=== PATIENT | male | born 1980 | race Caucasian/White ===

== ENCOUNTER 2019-06-28 10:20 | Emergency (ER) | payer BC, SELFPAY ==
[2019-06-28 10:28] VITALS: BP 135/89; PULSE 86; RESP 20; TEMP 36.8; O2SAT 99
--- NOTE | 2019-06-28 11:30 | ED.EYEPROB ---
HPI - Eye Problem General Chief complaint: Eye Problems Stated complaint: L eye injury Time Seen by Provider: 06/28/19 10:42 Source: patient Mode of arrival: ambulatory Limitations: no limitations History of Present Illness HPI Narrative: Patient presents with chief complaint of foreign body sensation in his left eye that began last night approximately 6 PM when he was grinding metal and felt some going to his eye. Patient states that he has been rinsing his eye with saline but he still feels discomfort to the center area of the lateral aspect of the eye. Patient reports tearing and light sensitivity. Patient reports some blurry vision but states that is due to the tearing. Patient denies wearing contact lenses. Patient denies any prior trauma to his eye. Related Data Allergies Allergy/AdvReac Type Severity Reaction Status Date / Time erythromycin base Allergy Unknown Anaphylactic Verified 06/28/19 11:01 Shock Review of Systems Review of Systems: Narrative: CONSTITUTIONAL: Denies fever, chills, or sweats. EYES: Reports foreign body sensation, visual changes, redness, and tearing ENT: Denies rhinorrhea, congestion, sore throat, or otalgia. CARDIOVASCULAR: Denies chest pain, palpitations, or edema. RESPIRATORY: Denies cough or dyspnea. GASTROINTESTINAL: Denies abdominal pain, nausea, vomiting, or diarrhea. GENITOURINARY: Denies dysuria or hematuria. SKIN: Denies rash or itching. MUSCULOSKELETAL: Denies back pain, joint pain, or myalgia. NEUROLOGIC: Denies headache, numbness, dizziness, or weakness. PSYCHIATRIC: Denies anxiety or depression. Exam Narrative: Exam Narrative: GENERAL: Well-appearing, well-nourished, and in no acute distress. HEAD: Normocephalic, atraumatic. EYES: PERRLA and EOMI. left eye: abrasions to the left side of sclera, metal noted right under the pupil in the area of iris at approximately 6 o'clock position. Rust ring noted. ENT: Nares clear, no rhinorrhea or epistaxis. Mucous membranes moist. Oropharynx without tonsillar hypertrophy exudate or other lesions. Bilateral TMs pearly rob nonbulging NECK: Supple. No adenopathy or masses. No carotid bruits or JVD CHEST: Clear to auscultation. No respiratory distress. No wheezes rales or rhonchi HEART: Regular rate and rhythm. No murmur heard. Normal peripheral pulses. ABDOMEN: Soft, nontender, nondistended, normal active bowel sounds. EXTREMITIES: Normal range of motion. No edema. SKIN: Warm, dry, no rash. NEURO: No focal deficits. Alert and oriented x3. PSYCH: Normal mood and affect. Course Vital Signs Vital signs: Vital Signs Temperature 98.2 F 06/28/19 10:28 Pulse Rate 86 06/28/19 10:28 Respiratory Rate 20 06/28/19 10:28 Blood Pressure 135/89 06/28/19 10:28 Pulse Oximetry 99 06/28/19 10:28 Temperature 98.2 F 06/28/19 10:28 Pulse Rate 86 06/28/19 10:28 Respiratory Rate 20 06/28/19 10:28 Blood Pressure 135/89 06/28/19 10:28 Pulse Oximetry 99 06/28/19 10:28 Procedures FB Removal Eye Foreign Body #1: Location: eye (L) Topical anesthetic used: tetracaine Foreign body: metal Technique: irrigation, cotton tip swab and needle Procedure performed under: direct visualization with magnification Complications: incomplete foreign body removal Foreign Body Removal Narrative: unable to remove metal and I will not perform more than very superficial removal so [facility] has been contacted as patient will be sent there for further intervention by Opthalmologist. Patient is stable and as no worsened symptoms. MDM - Eye Problem MDM Narrative Medical decision making narrative: Patient will be sent to [facility] for extraction of foreign body and further management as metal is not dislodging with very gentle, superficial manipulation. Patient continues to aggressively rub his eye despite being instructed not to do so. I have also walked into the room and seen the patient rubb
== END 2019-06-28 12:08 | disposition home or self-care (01) ==
PROVIDERS: Emergency Provider Emergency Medicine; PCP Physician Assistant
DX: S05.02XA Injury of conjunctiva and corneal abrasion without foreign body, left eye, initial encounter (principal); T15.92XA Foreign body on external eye, part unspecified, left eye, initial encounter; W22.8XXA Striking against or struck by other objects, initial encounter
CPT/HCPCS: 65205; 65220; 99282; A9270

== ENCOUNTER 2021-06-07 13:51 | Emergency (ER) | payer BC, SELFPAY ==
[2021-06-07 13:56] VITALS: BP 136/99; PULSE 115; RESP 18; TEMP 36.7; O2SAT 98
--- NOTE | 2021-06-07 14:24 | ED.SKABFB ---
HPI - Skin/Abscess/Foreign Bdy General Chief complaint: Allergic Reaction Stated complaint: allergic reaction Time Seen by Provider: 06/07/21 14:09 Source: patient and RN notes reviewed Mode of arrival: ambulatory Limitations: no limitations History of Present Illness HPI narrative: Patient presents today complaining of rash. He started with itching yesterday and swelling of his lips and tongue. At that time he took some Benadryl, which help with those symptoms. Today he started with a rash to his legs, trunk, and developed swelling to his hands. He does not have any swelling to his lips or tongue today. Denies shortness of breath or difficulty swallowing. He has been taking Benadryl for his symptoms. Last dose was 4 hours prior to arrival. MD complaint: rash Related Data Home Medications Medication Instructions Recorded Confirmed gabapentin 100 mg PO DAILY 06/07/21 06/07/21 rosuvastatin 5 mg PO DAILY 06/07/21 06/07/21 Allergies Allergy/AdvReac Type Severity Reaction Status Date / Time erythromycin base Allergy Unknown Anaphylactic Verified 06/07/21 14:13 Shock Review of Systems Review of Systems: CONSTITUTIONAL: Denies body aches, fever, chills, or sweats. EYES: Denies visual changes, redness, or discharge. ENT: Denies rhinorrhea, congestion, sore throat, or otalgia. CARDIOVASCULAR: Denies chest pain, palpitations, or edema. RESPIRATORY: Denies cough or dyspnea. GASTROINTESTINAL: Denies abdominal pain, nausea, vomiting, or diarrhea. GENITOURINARY: Denies dysuria or hematuria. SKIN: Denies wounds.+ Pruritic rash MUSCULOSKELETAL: Denies back pain, joint pain, or myalgia. NEUROLOGIC: Denies headache, numbness, tingling, or weakness. PSYCH: Denies depression or anxiety. PMFSH Comments At time of signature, I have reviewed and agree with nursing past medical, surgical, social and family history unless otherwise noted. Please see nursing chart for further information. There is no relevant family history pertinent to the presenting complaint Exam Narrative: GENERAL: Well-appearing, well-nourished, and in no acute distress. HEAD: Normocephalic, atraumatic. EYES: EOMI. No redness or drainage. Conjunctivae normal. ENT: Mucous membranes pink and moist. Nares clear. No rhinorrhea. Throat normal. Uvula midline. NECK: Normal AROM. Supple. No lymphadenopathy. CHEST: No respiratory distress. Clear to auscultation. HEART: Regular rate and rhythm. No murmur appreciated. Normal peripheral pulses. EXTREMITIES: Normal range of motion. Mild swelling to the bilateral hands.. SKIN: Warm, dry. Capillary refill normal. Normal skin turgor. Urticarial rash to the neck, upper back, chest, bilateral upper arms, bilateral upper legs, bilateral hands and wrists. Patient has multiple scabbed superficial linear abrasions, which he states are due to a new cat. None appear acutely infected. NEURO: No focal deficits. Alert and oriented x3. Gait steady. PSYCH: Normal affect. No signs of depression or anxiety. Course Course Level of Care: Express Care Visit Vital Signs Vital signs: Vital Signs Temperature 98.1 F 06/07/21 13:56 Pulse Rate 115 H 06/07/21 13:56 Respiratory Rate 18 06/07/21 13:56 Blood Pressure 136/99 H 06/07/21 13:56 Pulse Oximetry 98 06/07/21 13:56 Temperature 98.1 F 06/07/21 13:56 Pulse Rate 115 H 06/07/21 13:56 Respiratory Rate 18 06/07/21 13:56 Blood Pressure 136/99 H 06/07/21 13:56 Pulse Oximetry 98 06/07/21 13:56 Reviewed. Pt has been instructed to follow up with his PCP regarding his elevated blood pressure today. MDM - Skin/Abscess/Foreign Bdy Differential Diagnosis Differential diagnosis: Likely urticaria, cellulitis, eczema, impetigo and contact dermatitis Critical Care Time Critical Care Time Critical Care Time: No Discharge Plan Discharge Clinical Impression: Urticaria Patient Disposition: Home, Self-Care Condition: Stable Instructions: Urtic
== END 2021-06-07 14:30 | disposition home or self-care (01) ==
PROVIDERS: Emergency Provider Nurse Practitioner; PCP Physician Assistant
DX: L50.9 Urticaria, unspecified (principal); E78.00 Pure hypercholesterolemia, unspecified; M48.00 Spinal stenosis, site unspecified
CPT/HCPCS: 99213; G0463

== ENCOUNTER 2021-07-06 09:36 | Emergency (ER) | payer BC, SELFPAY ==
--- NOTE | 2021-07-06 09:38 | ED.URI ---
HPI - URI/Sore Throat General Chief Complaint: Upper Respiratory Infection Stated Complaint: sore throat Time Seen by Provider: 07/06/21 09:38 Source: patient, family, RN notes reviewed and old records reviewed Mode of arrival: ambulatory Limitations: no limitations History of Present Illness HPI Narrative: 40-year-old male presents to the [facility] with complaints of a sore throat, trouble swallowing, fever yesterday. States it started 2 to 3 days ago. Has been taking Tylenol and Motrin with some relief. Has taken Covid home test which he states is negative. MD elicited complaint: sore throat Onset (ago): day(s) (3) Consistency: constant Related Data Home Medications Medication Instructions Recorded Confirmed gabapentin 100 mg PO DAILY 06/07/21 06/07/21 rosuvastatin 5 mg PO DAILY 06/07/21 06/07/21 Allergies Allergy/AdvReac Type Severity Reaction Status Date / Time erythromycin base Allergy Unknown Anaphylactic Verified 07/06/21 09:38 Shock Review of Systems Review of Systems: All systems reviewed & are unremarkable except as noted in HPI and below Constitutional: Constitutional: Reports as per HPI, Denies chills, Reports fever(s) and Denies headache(s) Eyes: Eyes: Reports no additional eye complaints ENT: Reports as per HPI, Denies vertigo, Denies dizziness, Denies headache(s), Denies nasal congestion and Reports sore throat Comments: trouble swallowing Cardiovascular: Cardiovascular: Reports no additional cardiovascular complaints, Denies chest pain, Denies syncope, Denies rapid heart rate and Denies dyspnea Respiratory: Respiratory: Reports no additional respiratory complaints, Denies cough, Denies dyspnea and Denies wheezing Gastrointestinal: Gastrointestinal: Reports no additional gastrointestinal complaints, Denies abdominal pain, Denies diarrhea, Denies nausea and Denies vomiting Musculoskeletal: Musculoskeletal: Reports as per HPI, Reports myalgias and Denies numbness Integumentary/Breasts: Skin/Breast: Reports system reviewed and no additional complaints, except as docu Neurologic: Reports system reviewed and no additional complaints, except as documented, Denies vertigo, Denies dizziness, Denies syncope, Denies headache(s), Denies focal weakness and Denies numbness Psychiatric: Psychiatric: Reports no additional psychiatric complaints Allergic/Immunologic: Allergic/Immunologic: Reports no additional allergic/immunologic complaints and Denies wheezing PMFSH Past Medical History Medical History (Updated 07/06/21 @ 09:52 by Katelyn Jalloh) High cholesterol Surgical History Surgical History (Updated 07/06/21 @ 09:46 by Katelyn Jalloh) H/O right wrist surgery History of tonsillectomy Social History Social History (Updated 07/06/21 @ 09:47 by Katelyn Jalloh) Smoking status: Current every day smoker Tobacco type: cigarettes Living arrangements: with family Gender identity (if verbalized by the patient): Male Comments At the time of my signature, I reviewed and agree with the nursing past medical, surgical, social, and family history. There is no relevant family history pertinent to the patient complaint. Exam Const: General: cooperative, healthy appearing, no acute distress, well developed and alert Nutritional Appearance: well nourished Orientation/consciousness: patient oriented x3 Limitations: no limitations HENMT: Head: normal to inspection Ears: external ears normal, TM's normal bilaterally and EAC's normal General nose exam: Normal external nose present and Normal nasal mucous membranes and turbinates present Face and sinus: normal facial exam Mouth: Yes Normal oral and palatal mucosa present and Yes lip normal Throat: uvula midline, posterior oropharynx abnormal erythema (Posterior pharynx, uvula) and exudates (On uvula), tonsils absent and uvular edema Eyes: Conjunctivae: conjunctivae normal Pupils: Equal, round and reactive pupils present Neck: Neck: normal vis
[2021-07-06 09:47] VITALS: BP 138/103; PULSE 102; RESP 16; TEMP 35.9; O2SAT 99
== END 2021-07-06 09:55 | disposition home or self-care (01) ==
PROVIDERS: Emergency Provider Nurse Practitioner; PCP Physician Assistant
DX: J02.0 Streptococcal pharyngitis (principal); K12.2 Cellulitis and abscess of mouth; E78.00 Pure hypercholesterolemia, unspecified; F17.210 Nicotine dependence, cigarettes, uncomplicated
CPT/HCPCS: 87880; 99213; G0463

== ENCOUNTER 2021-07-18 17:33 | Emergency (ER) | payer BC, SELFPAY ==
[2021-07-18 17:46] VITALS: BP 120/88; PULSE 106; RESP 16; TEMP 37.2; O2SAT 99
--- NOTE | 2021-07-18 18:00 | ED.SKABFB ---
HPI - Skin/Abscess/Foreign Bdy General Chief complaint: Wound/Laceration Stated complaint: left hand swelling/redness Time Seen by Provider: 07/18/21 18:00 Source: patient Mode of arrival: ambulatory Limitations: no limitations History of Present Illness HPI narrative: Pete Fine is a 40 yo male with high cholesterol and chronic pain who cut his hand yesterday while at work and has not protected area since he cut it with a preparing box tender 2 days ago. He needs it tetanus shot and because of the redness at the base of the third and fourth finger on the palmar side may need antibiotics. Related Data Home Medications Medication Instructions Recorded Confirmed gabapentin 100 mg PO DAILY 06/07/21 07/06/21 rosuvastatin 5 mg PO DAILY 06/07/21 07/06/21 Allergies Allergy/AdvReac Type Severity Reaction Status Date / Time erythromycin base Allergy Unknown Anaphylactic Verified 07/06/21 09:38 Shock Review of Systems Review of Systems: CONSTITUTIONAL: Denies fever, chills, sweats. EYES: Denies visual changes, redness, discharge. ENT: Denies rhinorrhea, congestion, sore throat, otalgia. CARDIOVASCULAR: Denies chest pain, palpitations, edema. RESPIRATORY: Denies dyspnea, wheezing, cough GASTROINTESTINAL: Denies abdominal pain, nausea, vomiting, diarrhea. GENITOURINARY: Denies dysuria, hematuria, abnormal discharge SKIN: Denies rash or itching. Laceration to the left base of third finger with redness on the palmar side that is extending to the fourth finger NEUROLOGIC: Denies numbness, or focal weakness. PSYCHIATRIC: Denies anxiety or depression. [facility] Past Medical History Medical History Chronic back pain High cholesterol Surgical History Surgical History H/O right wrist surgery History of tonsillectomy Social History Social History (Updated 07/18/21 @ 18:03 by Negrita Gar CNP) Smoking status: Current every day smoker Tobacco type: cigarettes Alcohol intake: current Gender identity (if verbalized by the patient): Male Comments At time of signature, I agree with nursing past medical, surgical, social and family history. There is no relevant family history pertinent to the presenting complaint. Exam Narrative: GENERAL: This is a well-nourished, well-developed patient, in mild distress. HEAD: normocephalic, atraumatic. EYES: . Sclera clear/white. Vision is grossly intact. EARS: External ears normal, Hearing grossly intact. NOSE: External nose normal without nasal discharge, nares without redness, no rhinorrhea. THROAT: Mucous membranes moist, NECK: Neck supple, non-tender CARDIOVASCULAR: Regular rate and rhythm without murmurs, gallops, or rubs. RESPIRATORY: Clear to auscultation. Breath sounds equal bilaterally. No wheezes, rales, or rhonchi. GASTROINTESTINAL: Abdomen soft, non-tender, SKIN: warm, intact with poor movement of fingers 3, 4 and 5 due to pain, erythema around small 1 cm cut with mild swelling and some redness in the distal palm and base of 3rd finger; patient states is very tender but denies any possibility of foreign object in the cut NEURO: awake, alert, and oriented to person, place and time. There were no obvious focal neurologic abnormalities. Steady gait EXTREMITIES: Normal range of motion. BACK: Nontender without deformity Course Course Emergency Course: Patient cut hand at work yesterday and cleaned it at the time but did not protect the area which is now red and painful at the base of the third finger extending of the fourth finger palmar side Area cleaned, tetanus vaccine given, started on Keflex, tramadol and ibuprofen Level of Care: Express Care Visit Vital Signs Vital signs: Vital Signs Temperature 98.9 F 07/18/21 17:46 Pulse Rate 106 H 07/18/21 17:46 Respiratory Rate 16 07/18/21 17:46 Blood Pressure 120/88 07/18/21 17:46 Pulse Oximetry
[2021-07-18] MEDS: TETANUS,DIPHTHERIA,AC PERTUSSIS ADULT (0.5 ML) BOOSTRIX IM (18:10)
== END 2021-07-18 18:31 | disposition home or self-care (01) ==
PROVIDERS: Emergency Provider Nurse Practitioner
DX: L03.012 Cellulitis of left finger (principal); Z23 Encounter for immunization; F17.210 Nicotine dependence, cigarettes, uncomplicated; E78.00 Pure hypercholesterolemia, unspecified
CPT/HCPCS: 90471; 90715; 99213; G0463

== ENCOUNTER 2021-07-21 09:39 | Emergency (ER) | payer BC, SELFPAY ==
--- NOTE | 2021-07-21 09:48 | ED.UPPEXIN ---
HPI - Extremity Injury (Upper) General Chief Complaint: Extremity Injury, Upper Stated Complaint: Left hand Pain Time Seen by Provider: 07/21/21 09:48 Source: patient, RN notes reviewed and old records reviewed Mode of arrival: ambulatory Limitations: no limitations History of Present Illness HPI narrative: 40 year male presented to the [facility] with complaint of hand pain and swelling to the 3rd finger with streaking redness on top of hand. 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 He received a prescription for Keflex and [place]. Patient received a tetanus immunization on 07/18/21 per patient record. Patient reported that he has been compliant with his antibiotics but the swelling and pain is worsening. Patient reports pain 02/25. MD complaint: injury to: left and hand Severity: moderate Severity scale (1-10): >10 Relieving factors: none Related Data Home Medications Medication Instructions Recorded Confirmed gabapentin 100 mg PO DAILY 06/07/21 07/21/21 rosuvastatin 5 mg PO DAILY 06/07/21 07/21/21 Allergies Allergy/AdvReac Type Severity Reaction Status Date / Time erythromycin base Allergy Unknown Anaphylactic Verified 07/21/21 10:00 Shock Review of Systems Review of Systems: All systems reviewed & are unremarkable except as noted in HPI and below Constitutional: Constitutional: Reports no additional constitutional complaints, Denies chills and Denies fever(s) Eyes: Eyes: Reports no additional eye complaints ENT: Reports system reviewed and no additional complaints, except as documented Cardiovascular: Cardiovascular: Reports no additional cardiovascular complaints Respiratory: Respiratory: Reports no additional respiratory complaints Gastrointestinal: Gastrointestinal: Reports no additional gastrointestinal complaints Musculoskeletal: Musculoskeletal: Reports as per HPI, Reports arthralgias and Reports joint swelling Integumentary/Breasts: Skin/Breast: Reports as per HPI and Reports erythema Neurologic: Reports system reviewed and no additional complaints, except as documented Psychiatric: Psychiatric: Reports no additional psychiatric complaints Allergic/Immunologic: Allergic/Immunologic: Reports no additional allergic/immunologic complaints [facility] Past Medical History Medical History (Updated 07/21/21 @ 18:19 by Katelyn Jalloh APRN) Chronic back pain High cholesterol History of high blood pressure Surgical History Surgical History H/O right wrist surgery History of tonsillectomy Social History Social History Smoking status: Current every day smoker Tobacco type: cigarettes Alcohol intake: current Gender identity (if verbalized by the patient): Male Comments At the time of my signature, I reviewed and agree with the nursing past medical, surgical, social, and family history. There is no relevant family history pertinent to the patient complaint. Exam Const: General: healthy appearing, no acute distress and alert Nutritional Appearance: well nourished Orientation/consciousness: patient oriented x3 Limitations: no limitations HENMT: Head: normal to inspection Ears: external ears normal Eyes: Pupils: Equal, round and reactive pupils present Neck: Neck: normal visual inspection, no lymphadenopathy and no meningeal signs Chest: Chest palpation & inspection: normal inspection of the chest Resp: Effort & Inspection: normal respiratory effort and no use of accessory muscles Auscultation: clear to auscultation bilaterally, no crackles, no rales, no rhonchi and no wheezes Cardio: Rate: regular rate Rhythm: regular rhythm Back/Spine/Pelvis: Back: no CVA tenderness Skin: General skin exam: normal color Rashes: no rashes Wounds: wounds noted Other: Left palmar aspect third finger, fluctuance noted to the volar a
[2021-07-21 09:50] VITALS: BP 146/84; PULSE 81; RESP 18; TEMP 36; O2SAT 100
== END 2021-07-21 10:00 | disposition short-term general hospital (02) ==
LOC: EXPCOLL 09:43
PROVIDERS: Emergency Provider Nurse Practitioner; PCP Physician Assistant
DX: L03.012 Cellulitis of left finger (principal); L02.512 Cutaneous abscess of left hand; F17.210 Nicotine dependence, cigarettes, uncomplicated; E78.00 Pure hypercholesterolemia, unspecified; I10 Essential (primary) hypertension
CPT/HCPCS: 99212; G0463

== ENCOUNTER 2023-01-30 12:20 | Emergency (ER) | payer BC, SELFPAY ==
--- NOTE | ~2023-01-30 | XR_ITS ---
XR foot RT min 3V 01/30/2023 12:54 INDICATION: Right foot pain PROCEDURE: 4 views right foot COMPARISON: No prior studies for comparison. FINDINGS: Fracture, dislocation or subluxation is not identified. Lisfranc joint intact. The soft tis sues appear within normal limits. No foreign bodies are identified. IMPRESSION: 1: NO ACUTE BONE OR JOINT ABNORMALITY IDENTIFIED. Reviewed, dictated and finalized at location L.
[2023-01-30 12:34] VITALS: BP 139/87; PULSE 99; RESP 16; TEMP 36.6; O2SAT 100
[2023-01-30 12:37] VITALS: BP 139/87; PULSE 99; RESP 16; TEMP 36.6; O2SAT 100
--- NOTE | 2023-01-30 13:00 | ED.LOWEXIN ---
HPI - Extremity Injury (Lower) General Chief Complaint: Extremity Injury, Lower Stated Complaint: stepped on nail last pm Time Seen by Provider: 01/30/23 12:22 Source: patient Mode of arrival: ambulatory Limitations: no limitations History of Present Illness HPI Narrative: Patient is a 42-year-old male who presents with wound to bottom of right foot. Patient states he stepped on a nail poking through a piece of wood last night. Patient states the nail went through the bottom of his shoe into foot but did not go all the way through his foot. Patient did have to stand on the board with other foot to pry foot out. Patient states he went home showered cleansed area and put antibiotic ointment on foot. Patient states foot pain will come from sleep and is now unable to bear weight on hard surface but is able to tolerate walking with shoes on. Patient states it is still painful to walk. Reports tenderness to puncture site and surrounding area of foot. Tetanus shot was updated at last PCP appointment. Related Data Home Medications Medication Instructions Recorded Confirmed rosuvastatin 5 mg tablet 5 mg PO DAILY 06/07/21 01/30/23 lisinopril 10 mg tablet 10 mg DIRECTED 01/30/23 01/30/23 Allergies Allergy/AdvReac Type Severity Reaction Status Date / Time erythromycin base Allergy Unknown Anaphylactic Verified 07/21/21 10:00 Shock methocarbamol [From Robaxin] Allergy Itching Verified 07/21/21 18:46 Review of Systems Review of Systems: All systems reviewed & are unremarkable except as noted in HPI and below Constitutional: Constitutional: Denies body ache(s), Denies chills, Denies fatigue, Denies fever(s), Denies headache(s), Denies malaise and Denies weakness Eyes: Eyes: Denies blurry vision, Denies irritation and Denies loss of vision ENT: Denies otalgia, Denies headache(s), Denies nasal discharge, Denies sinus pain and Denies sore throat Cardiovascular: Cardiovascular: Denies chest pain, Denies irregular heart rhythm and Denies dyspnea Respiratory: Respiratory: Denies dyspnea Gastrointestinal: Gastrointestinal: Denies abdominal pain, Denies melena, Denies hematochezia, Denies diarrhea, Denies nausea and Denies vomiting Musculoskeletal: Musculoskeletal: Denies back pain, Denies myalgias and Reports arthralgias Integumentary/Breasts: Skin/Breast: Denies pruritus, Denies rash and Reports wounds Neurologic: Denies headache(s), Denies loss of vision and Denies weakness Psychiatric: Psychiatric: Reports no additional psychiatric complaints Endocrine: Endocrine: Denies fatigue PMFSH Past Medical History Medical History Chronic back pain High cholesterol History of high blood pressure Surgical History Surgical History H/O right wrist surgery History of tonsillectomy Social History Social History Smoking status: Current every day smoker Tobacco type: cigarettes Alcohol intake: current Living arrangements: with family Gender identity (if verbalized by the patient): Male Comments At time of signature, agree with nursing past medical, surgical, social and family history. There is no relevant family history pertinent to the presenting complaint. Exam Const: General: cooperative, healthy appearing, comfortable, no acute distress and well nourished Nutritional Appearance: well nourished Orientation/consciousness: patient oriented x3 Limitations: no limitations HENMT: Head: normal to inspection, normocephalic and atraumatic Ears: hearing grossly normal bilaterally and external ears normal Face/Nose/Sinus: Normal external nose present, normal facial exam and face symmetric Face and sinus: normal facial exam and face symmetric Mouth: Yes lip normal Eyes: General: appearance normal, both eyes and all related structures Alignment and Po
== END 2023-01-30 13:25 | disposition home or self-care (01) ==
PROVIDERS: Emergency Provider Nurse Practitioner Family; PCP Physician Assistant
DX: S91.331A Puncture wound without foreign body, right foot, initial encounter (principal); W45.0XXA Nail entering through skin, initial encounter; E78.00 Pure hypercholesterolemia, unspecified; I10 Essential (primary) hypertension; F17.210 Nicotine dependence, cigarettes, uncomplicated
CPT/HCPCS: 73630; 99213; G0463

== ENCOUNTER 2024-03-29 12:49 | Outpatient (CLI) | payer BC, SELFPAY ==
--- NOTE | ~2024-03-29 | XR_ITS ---
XR foot LT min 3V Ordering provider: Nakul Palmer MD History: . M79.673 - Pain in unspecified foot, dorsal pain, injury . Comparison: None. FINDINGS: BONES: No acute fracture or dislocation. JOINT SPACES: Narrowing of the proximal and distal interphalangeal joints. No tarsal coalition. SOFT TISSUES: Normal. IMPRESSION: No acute osseous abnormality left foot. Reviewed, dictated and finalized at location A. [employer]
== END 2024-03-29 12:50 | disposition home or self-care (01) ==
LOC: ANHIMG 12:50
PROVIDERS: PCP Family Medicine; Visit Provider Family Medicine
DX: M79.672 Pain in left foot (principal)
CPT/HCPCS: 73630